=== PATIENT | male | born 1980 | race Caucasian/White ===

== ENCOUNTER 2024-07-13 06:00 | Day surgery (SDC) | payer BC ==
[2024-07-12 12:52] VITALS: BMI 30.8
[2024-07-13] MEDS ORDERED: Lidocaine 1% (PF) 30 ML VIAL ONE (06:32)
[2024-07-13] MEDS ORDERED: CEFAZOLIN 2 GM VIAL ONE (06:46)
[2024-07-13] MEDS ORDERED: fentaNYL PF 100 MCG/2 ML SYRINGE ONE (06:50)
[2024-07-13] MEDS ORDERED: Midazolam HCl 2 mg/2 ml Vial ONE (06:50)
[2024-07-13] MEDS ORDERED: Lidocaine 2% PF 5 ML VIAL ONE (06:50)
[2024-07-13] MEDS ORDERED: PROPOFOL 20 ML ONE (06:50)
[2024-07-13] MEDS ORDERED: Ondansetron PF 4 MG/2 ML Vial ONE (07:09)
[2024-07-13] MEDS ORDERED: Dexamethasone 4 mg/ml Vial ONE (07:09)
[2024-07-13] MEDS ORDERED: Ketamine In 0.9 % NaCl 50 MG/5 ML SYRINGE ONE (07:14)
[2024-07-13] MEDS ORDERED: Sodium Chloride 0.9% 100 ML ONE (07:17)
[2024-07-13] MEDS ORDERED: Dexmedetomidine 200 MCG/2 ML VIAL ONE (07:17)
[2024-07-13] MEDS ORDERED: HYDROcodone/Acetaminophen 5/325 mg Tablet ONE (09:34)
== END 2024-07-13 10:18 | disposition home or self-care (01) ==
LOC: SDC 06:00
PROVIDERS: ATTEND Orthopaedic Surgery
PROC: 0LB60ZZ Excision of Left Lower Arm and Wrist Tendon, Open Approach (ICD-10-PCS; principal; 2024-07-13)
DX: M67.432 Ganglion, left wrist (principal); I10 Essential (primary) hypertension; E78.00 Pure hypercholesterolemia, unspecified; Z79.899 Other long term (current) drug therapy
CPT/HCPCS: 88304; A6223; J1100; J2250; J2405; J2704; J3490